=== PATIENT | female | born 1995 | race Caucasian/White ===

== ENCOUNTER 2021-05-15 18:31 | Emergency (ER) | payer BC ==
[~2021-05-15] VITALS: Ht 170.2 cm; Wt 57.9 kg
[2021-05-15] MEDS ORDERED: ONDANSETRON ODT 4 MG TAB.RAPDIS PO ONE (18:45)
--- NOTE | 2021-05-15 18:49 | PHYS DOC ---
Adult General HPI HPI Patient is a 25-year-old female, otherwise healthy who presents with a chief complaint of concern for dehydration. States she was moving furniture today outside and felt hot and sweaty and a little nauseous. States she was trying to sip on some water. States she took off today from work so she could rest. States she had a headache earlier, but took some Tylenol and it has resolved. Denies any fevers, chest pain, shortness of breath, abdominal pain, vomiting, dysuria, hematuria or blood in the stool. Denies any recent traumas, travels, known ill contacts. Review of Systems Review of Systems Review of systems otherwise unremarkable except noted in HPI Physical Exam Physical Exam Constitutional: Well developed, well nourished, no acute distress, non-toxic appearance. [] HENT: Normocephalic, atraumatic, oropharynx moist, no oral exudates, nose normal. [] Eyes: conjunctiva normal, no discharge. [] Neck: Normal range of motion, no tenderness, supple, no stridor. [] Cardiovascular:Heart rate regular rhythm, no murmur [] Lungs & Thorax: Bilateral breath sounds clear to auscultation [] Abdomen: soft, no tenderness, no masses, no pulsatile masses. [] Skin: Warm, dry, no erythema, no rash. [] Extremities: No tenderness, ROM intact, no edema. [] Neurologic: Alert and oriented X 3, no focal deficits noted. [] Psychologic: Affect normal, judgement normal, mood normal. [] EKG EKG [] Radiology/Procedures Radiology/Procedures [] Heart Score C/O Chest Pain: No Risk Factors: Risk Factors: DM, Current or recent (<one month) smoker, HTN, HLP, family history of CAD, obesity. Risk Scores: Risk Factors: DM, Current or recent (<one month) smoker, HTN, HLP, family history of CAD, obesity. Course & Med Decision Making Course & Med Decision Making Patient is a 25-year-old female who presents with a chief complaint of concern for dehydration or heat exhaustion Vital signs not concerning. Physical exam noted above. Given Zofran. Given ice pack. Given p.o. fluids which she was able to tolerate. Given work note at her request. Advised on symptom control at home including fluids and diet and staying out from the sun. Advised to call primary care physician in the morning to update on ED visit. Gave return precautions to the ED. Patient grateful, verbalized understanding and agreed with plan of discharge. Dragon Disclaimer Aaliyahon Disclaimer This electronic medical record was generated, in whole or in part, using a voice recognition dictation system. Departure Departure: Impression: Primary Impression: Dehydration Additional Impression: Nausea Disposition: HOME / SELF CARE / HOMELESS Condition: GOOD Referrals: [facility]OS[facility] Patient Instructions: Heat Disorders Additional Instructions: Thank you for coming into the emergency department tonight and allowing us to take care of you. As discussed, please read the attached information very carefully to go back over what we discussed. Please be sure to stay indoors, as cool as possible and drink plenty of fluids. Please call your primary care in the morning to update on your ED visit. You are given a work note for today. Please come back to the ED with new or concerning symptoms as discussed. Problem Qualifiers BERHANE KOHLI MD May 15, 2021 18:49
[2021-05-15 18:50] VITALS: BP 131/91
[2021-05-15] MEDS ORDERED: ONDANSETRON ODT 4 MG TAB.RAPDIS ONE (19:05)
== END 2021-05-15 19:44 | disposition home or self-care (01) ==
LOC: ER 18:31
DX: E86.0 Dehydration (principal); R11.0 Nausea
CPT/HCPCS: 99283; Q0162